=== PATIENT | male | born 1970 | race Caucasian/White ===

== ENCOUNTER 2019-07-16 13:13 | Emergency (ER) | payer MEDICAID, OTHER ==
[~2019-07-16] VITALS: Ht 188 cm; Wt 88.0 kg
[~2019-07-16 13:13] MED LIST: cipro
[2019-07-16 13:21] VITALS: BP 124/87
[2019-07-16] MEDS ORDERED: buprenorphine/naloxone 8MG-2MG SUBlingual film SL STA (13:50)
== END 2019-07-16 14:05 | disposition home or self-care (01) ==
LOC: ER 13:13
DX: Z00.00 Encounter for general adult medical examination without abnormal findings (principal); Z98.890 Other specified postprocedural states; Z59.0 Homelessness
CPT/HCPCS: 99282

== ENCOUNTER 2019-07-16 19:09 | Emergency (ER) | payer OTHER ==
[~2019-07-16] VITALS: Ht 188 cm; Wt 86.0 kg
[2019-07-16 19:12] VITALS: BP 154/95
== END 2019-07-16 20:17 | disposition left against medical advice (07) ==
LOC: ER 19:10
DX: K08.89 Other specified disorders of teeth and supporting structures (principal); Z98.890 Other specified postprocedural states; Z79.899 Other long term (current) drug therapy
CPT/HCPCS: 99281

== ENCOUNTER 2019-07-18 13:17 | Emergency (ER) | payer OTHER ==
[~2019-07-18] VITALS: Ht 188 cm; Wt 77.3 kg
[2019-07-18] MEDS ORDERED: BUPR1FIL17 SL (14:09)
[2019-07-18] MEDS ORDERED: olanzapine 10mg tablet PO STA (14:09)
[2019-07-18] MEDS ORDERED: ibuprofen tablet 400 MG TABLET PO ONE (14:10)
[2019-07-18] MEDS ORDERED: LISD70CA PO (14:12)
[2019-07-18 14:40] LABS: BASOPHILS # (AUTO) 0.1 X10'3 (0-0.2); EOSINOPHILS # (AUTO) 0.1 X10'3 (0-0.9); EOSINOPHILS % (AUTO) 0.7 % (0-6); HEMOGLOBIN 14.6 g/dl (14.0-17.9); LYMPHOCYTES # (AUTO) 1.2 X10'3 (1.1-4.8); MEAN CORPUSCULAR HEMOGLOBIN 31.5 PG (27.0-31.0); MEAN CORPUSCULAR HGB CONC 34.8 g/dL (33.0-36.5); MEAN CORPUSCULAR VOLUME 90.6 FL (78-98); MEAN PLATELET VOLUME 10.1 FL (7.4-10.4); MONOCYTES # (AUTO) 0.9 X10'3 (0-0.9); MONOCYTES % (AUTO) 13.1 % (2-12); NEUTROPHILS % (AUTO) 69.2 % (42-75); PLATELET COUNT 200 X10'3 (140-440); RED BLOOD COUNT 4.64 X10'6 (4.70-6.10); RED CELL DISTRIBUTION WIDTH 13.7 % (11.5-14.5); WHITE BLOOD COUNT 7.2 X10'3 (4.5-11.0)
[2019-07-18 14:52] LABS: ALANINE AMINOTRANSFERASE 49 U/L (12-78); ALBUMIN 3.6 G/DL (3.4-5.0); ALKALINE PHOSPHATASE 73 IU/L (46-116); ANION GAP 6 (8-16); ASPARTATE AMINO TRANSFERASE 77 U/L (10-37); BILIRUBIN,TOTAL 0.5 MG/DL (0.1-1.0); BLOOD UREA NITROGEN 17 MG/DL (7-18); CALCIUM 9.1 MG/DL (8.5-10.1); CHLORIDE 102 MMOL/L (99-107); CREATININE 0.81 MG/DL (0.60-1.10); ETHANOL < 0.010 GM/DL (0.0-0.010); GLUCOSE 102 MG/DL (70-104); POTASSIUM 3.7 MMOL/L (3.5-5.1); SODIUM 136 MMOL/L (135-145); TOTAL PROTEIN 7.2 G/DL (6.4-8.2); eGFR > 90 ML/MIN
[2019-07-18 14:53] LABS: URINE AMPHETAMINE SCREEN POSITIVE (Neg); URINE BARBITUATE SCREEN NEGATIVE (Neg); URINE BENZODIAZEPINES SCREEN NEGATIVE (Neg); URINE CANNABINOID SCREEN POSITIVE (Neg); URINE COCAINE SCREEN NEGATIVE (Neg); URINE METHADONE SCREEN NEGATIVE (Neg); URINE OPIATE SCREEN POSITIVE (Neg); URINE PHENCYCLIDINE SCREEN NEGATIVE (Neg)
[2019-07-18 16:26] LABS: CLARITY,URINE CLEAR (Clear); COLOR,URINE YELLOW (Yellow); GLUCOSE, URINE NEGATIVE (Neg); KETONES,URINE TRACE mg/dl (Neg); LEUKOCYTE ESTERASE ,URINE NEGATIVE (Neg); NITRITES, URINE NEGATIVE (Neg); OCCULT BLOOD,URINE NEGATIVE (Neg); PROTEIN,URINE NEGATIVE (Neg)
[2019-07-18 16:27] LABS: UA COLLECTION TYPE CLN CATCH MIDSTREAM
--- NOTE | 2019-07-18 16:31 | NUR ---
PT PACKET FAXED TO [facility]
--- NOTE | 2019-07-18 17:23 | NUR ---
PT REFUSED BLOOD PRESSURE
--- NOTE | 2019-07-18 23:25 | NUR ---
Pt. resting on right side, no signs or symptoms of distress, respirations WNL
--- NOTE | 2019-07-18 23:31 | NUR ---
Pt. in line of sight of RN and tech.
--- NOTE | 2019-07-19 01:09 | NUR ---
Pt. had complaints of chest congestion, on assesment moist cough, wheezes throughout lungs. Disscussed with Dr. Stoll, RT treatment ordered
[2019-07-19] MEDS ORDERED: albuterol 2.5 MG/3 ML nebule NEB ONE (01:10)
--- NOTE | 2019-07-19 01:23 | NUR ---
pt refused breathing tx. states he only eants an inhaler and explained we dont carry inhalers here
--- NOTE | 2019-07-19 03:53 | NUR ---
Pt complained of 7/10 pain to his ribs and requested to receive pain medication. Pt does not have a prn order. He received motrin at 1500 and states that it was ineffective. Consulted with MD Hsieh who stated the patient can receive more motrin. The patient is refusing to receive motrin, states he wants something stronger and would rather be in pain than take motrin.
[2019-07-19] MEDS ORDERED: ibuprofen tablet 400 MG TABLET PO ONE (03:55)
[2019-07-19 05:20] VITALS: BP 137/92
--- NOTE | 2019-07-19 07:00 | NUR ---
Pt remains sleeping in bed without complaints or signs of distress.
[2019-07-19] MEDS ORDERED: non-formulary drug (Lisdexamfetamine Dimesylate (Vyvanse) 1 CAP) PO SCH (08:00)
--- NOTE | 2019-07-19 09:00 | NUR ---
Pt up for breakfast, ambulate to the bathroom. Behavioral quiet and compliant. Affect flat. Parents at bedside. Addendum: 07/19/19 at 0923 by MOISES previous note wrong pt. Parents are NOT present. Pt up for breakfast and returned to sleep.
[2019-07-19] MEDS ORDERED: acetaminophen 325mg tablet PO PRN (09:30)
--- NOTE | 2019-07-19 11:00 | NUR ---
Pt lying in bed with eyes closed, without complaints or signs of distress.
== END 2019-07-19 12:48 ==
LOC: ER 13:17
DX: F23 Brief psychotic disorder (principal); F11.10 Opioid abuse, uncomplicated; F15.10 Other stimulant abuse, uncomplicated; Z86.14 Personal history of Methicillin resistant Staphylococcus aureus infection; Z98.890 Other specified postprocedural states; Z59.0 Homelessness; Z79.899 Other long term (current) drug therapy
CPT/HCPCS: 36415; 71045; 80053; 80305; 80320; 81003; 85025; 99284

== ENCOUNTER 2019-07-28 10:45 | Emergency (ER) | payer OTHER ==
[~2019-07-28] VITALS: Ht 188 cm; Wt 81.0 kg
[~2019-07-28 10:45] MED LIST changes: +LISD70CA PO; -cipro
[2019-07-28 10:58] VITALS: BP 146/84
[2019-07-28] MEDS ORDERED: ketorolac tromethamine 15mg/ml inj. IM ONE (11:10)
[2019-07-28] MEDS ORDERED: LIDOcaine 5% patch TP SCH (11:10)
[2019-07-28] MEDS ORDERED: haloperidol lactate 5mg/ml inj IM ONE (12:25)
[2019-07-28] MEDS ORDERED: diphenhydrAMINE 25mg capsule PO ONE (12:25)
[2019-07-28 12:46] LABS: BASOPHILS # (AUTO) 0.1 X10'3 (0-0.2); BASOPHILS % (AUTO) 0.7 % (0-1); EOSINOPHILS % (AUTO) 0.2 % (0-6); HEMOGLOBIN 15.2 g/dl (14.0-17.9); LYMPHOCYTES # (AUTO) 1.4 X10'3 (1.1-4.8); LYMPHOCYTES % (AUTO) 12.7 % (21-51); MEAN CORPUSCULAR HEMOGLOBIN 31.4 PG (27.0-31.0); MEAN CORPUSCULAR HGB CONC 34.5 g/dL (33.0-36.5); MEAN CORPUSCULAR VOLUME 91.1 FL (78-98); MEAN PLATELET VOLUME 9.5 FL (7.4-10.4); MONOCYTES # (AUTO) 1.5 X10'3 (0-0.9); MONOCYTES % (AUTO) 13.5 % (2-12); NEUTROPHILS % (AUTO) 72.9 % (42-75); PLATELET COUNT 222 X10'3 (140-440); RED BLOOD COUNT 4.83 X10'6 (4.70-6.10); RED CELL DISTRIBUTION WIDTH 13.7 % (11.5-14.5)
[2019-07-28 13:09] LABS: ALANINE AMINOTRANSFERASE 52 U/L (12-78); ALBUMIN/GLOBULIN RATIO 1.1 (1.1-1.5); ALKALINE PHOSPHATASE 82 IU/L (46-116); ANION GAP 11 (8-16); ASPARTATE AMINO TRANSFERASE 64 U/L (10-37); BILIRUBIN,TOTAL 0.5 MG/DL (0.1-1.0); BLOOD UREA NITROGEN 20 MG/DL (7-18); BUN/CREATININE RATIO 19.2 (5.4-32.0); CALCIUM 9.2 MG/DL (8.5-10.1); CHLORIDE 104 MMOL/L (99-107); CREATININE 1.04 MG/DL (0.60-1.10); GLUCOSE 88 MG/DL (70-104); POTASSIUM 3.5 MMOL/L (3.5-5.1); SODIUM 140 MMOL/L (135-145); TOTAL CARBON DIOXIDE 25.1 MMOL/L (24-32); TOTAL PROTEIN 7.7 G/DL (6.4-8.2); eGFR 77 ML/MIN
== END 2019-07-28 13:19 | disposition home or self-care (01) ==
LOC: ER 10:46
DX: F15.929 Other stimulant use, unspecified with intoxication, unspecified (principal); R07.89 Other chest pain; Z86.19 Personal history of other infectious and parasitic diseases; Z98.890 Other specified postprocedural states; Z59.0 Homelessness; Z79.899 Other long term (current) drug therapy; W01.0XXA Fall on same level from slipping, tripping and stumbling without subsequent striking against object, initial encounter; Y93.02 Activity, running; Y92.89 Other specified places as the place of occurrence of the external cause; Y99.8 Other external cause status
CPT/HCPCS: 36415; 71101; 80053; 83880; 84484; 85025; 93005; 96372; 99285; J1630; J1885; Q0163